=== PATIENT | male | born 1945 | race Caucasian/White ===

== ENCOUNTER 2025-02-26 13:56 | Emergency (ER) | payer BC, MEDICARE, OTHER ==
[2025-02-26 15:38] LABS: ALANINE AMINOTRANSFERASE,ALT 20.0 U/L (16-63); ASPARTATE AMNIOTRANSFERASE,AST 13.0 U/L (15-37); BILIRUBIN TOTAL 0.4 mg/dL (0.2-1.0); BLOOD UREA NITROGEN,BUN 16.0 mg/dL (7-18); CARBON DIOXIDE,CO2 30.0 mmol/L (21-32); CHLORIDE,CL 106.0 mmol/L (98-107); CREATININE 1.12 mg/dL (0.70-1.30); EST CRCL DRUG DOSING (CG) 56.13 mL/min; GLUCOSE RANDOM 87.0 mg/dL (70-99); POTASSIUM,K 4.8 mmol/L (3.5-5.1); PROTEIN TOTAL,TP 6.6 g/dL (6.4-8.2); SODIUM,NA 139.0 mmol/L (136-145)
[2025-02-26 15:40] LABS: A/G RATIO 0.94; ESTIMATED GFR 67.0 mL/min (>=60)
== END 2025-02-26 19:00 | disposition home or self-care (01) ==
LOC: DL.ED 13:56 → MERGE 13:56 → DL.ED 19:00
DX: I82.402 Acute embolism and thrombosis of unspecified deep veins of left lower extremity (principal)
CPT/HCPCS: 36415; 80053; 85379; 93971; 99284; A9270